=== PATIENT | female | born 1965 ===

== ENCOUNTER 2017-12-09 15:10 | Emergency (ER) | payer SELFPAY ==
[2017-12-09 16:31] VITALS: BMI 33.6
[2017-12-09 16:37] VITALS: BP 137/90; PULSE 74; RESP 17; TEMP 98.7; O2SAT 99
== END 2017-12-09 16:51 | disposition left against medical advice (07) ==
LOC: C.ER 15:10
DX: Z02.89 Encounter for other administrative examinations (principal); R19.7 Diarrhea, unspecified